=== PATIENT | female | born 1965 | race Caucasian/White ===

== ENCOUNTER 2016-04-12 11:21 | Observation (INO) | payer OTHER ==
[~2016-04-12] VITALS: Ht 172.7 cm; Wt 118.0 kg
[~2016-04-12 11:21] MED LIST: HYDROCHLOROTHIA25 MG PO; LISINOPRIL2.5 MG PO; LOVASTATIN40 MG PO; PLAVIX75 MG PO; TENORMIN25 MG PO; WELLBUTRIN100 MG
[2016-04-12 14:10] LABS: HEMATOCRIT 36.6 % (36.0-46.0); MCHC 32.5 G/DL (30.0-36.0); MCV 92.2 FL (83-99); MEAN PLAT.VOLUME 10.4 uM^3 (9.5-12.4); PLATELET COUNT 238 K/uL (156-360); RBC DIS.WIDTH-CV 12.2 % (11.8-14.6); RBC DIS.WIDTH-SD 40.1 % (39-53); RED BLOOD COUNT 3.97 M/uL (3.80-5.20); WHITE BLOOD COUNT 9.2 K/uL (4.1-10.2)
[2016-04-12 14:21] LABS: CHLORIDE 105 mEq/L (99-109); POTASSIUM 4.7 mEq/L (3.7-5.4); SODIUM 140 mEq/L (136-147)
[2016-04-12 14:23] LABS: GLUCOSE 98 mg/dL (70-99)
[2016-04-12 14:24] LABS: ANION GAP 13 MEQ/L (2-14)
[2016-04-12 14:27] LABS: GFR ESTIMATE (CALCULATED) > 59 mL/min/
[2016-04-12 14:28] LABS: UREA NITROGEN (BUN) 12 mg/dL (9-23)
[2016-04-12 14:31] LABS: TROP-I INTERPRETATION NEGATIVE; TROPONIN-I < 0.01 ng/mL (0.0-0.30)
[2016-04-12] MEDS ORDERED: MULTI VITAMIN1 EACH PO (16:24)
[2016-04-12] MEDS ORDERED: ASPIR-LOW81 MG PO (16:24)
[2016-04-12 17:29] LABS: SAMPLE HEMOLYSIS CHECK 0; SAMPLE ICTERIC CHECK 0; SAMPLE LIPEMIA CHECK 0
[2016-04-12 17:35] LABS: HDL CHOLESTEROL 57 MG/DL (Desirable>=50); LDL CHOLESTEROL 69 mg/dL (Desirable<100); NON-HDL CHOLESTEROL 79 mg/dL (Desirable<160); TOTAL CHOLESTEROL 136 mg/dL (Desirable<200); TRIGLYCERIDES 51 MG/DL (Normal: <150)
[2016-04-12 18:15] VITALS: BP 100/55
[2016-04-12 18:33] LABS: TROP-I INTERPRETATION NEGATIVE; TROPONIN-I < 0.01 ng/mL (0.0-0.30)
[2016-04-12 18:48] LABS: Estimated Average Glucose 120 mg/dL (70-123); HEMOGLOBIN A1c (GLYCOHEMOGLOB) 5.8 % HGB (Below 5.7)
[2016-04-12 21:59] VITALS: BP 93/44
[2016-04-12 22:22] LABS: TROP-I INTERPRETATION NEGATIVE; TROPONIN-I < 0.01 ng/mL (0.0-0.30)
[2016-04-13] VITALS: BP 103/52
[2016-04-13 04:20] VITALS: BP 103/55
[2016-04-13 07:31] LABS: HEMATOCRIT 34.6 % (36.0-46.0); MCHC 32.1 G/DL (30.0-36.0); MCV 93.5 FL (83-99); MEAN PLAT.VOLUME 11.3 uM^3 (9.5-12.4); PLATELET COUNT 199 K/uL (156-360); RBC DIS.WIDTH-CV 12.5 % (11.8-14.6); RBC DIS.WIDTH-SD 42.2 % (39-53)
[2016-04-13 07:32] LABS: WHITE BLOOD COUNT 5.1 K/uL (4.1-10.2)
[2016-04-13 07:53] LABS: ANION GAP 12 MEQ/L (2-14); CHLORIDE 104 MEQ/L (99-109); SAMPLE HEMOLYSIS CHECK 0; SAMPLE ICTERIC CHECK 0; SAMPLE LIPEMIA CHECK 0; SODIUM 142 MEQ/L (136-147)
[2016-04-13 07:54] LABS: POTASSIUM 3.7 MEQ/L (3.7-5.4)
[2016-04-13 07:59] LABS: GFR ESTIMATE (CALCULATED) > 59 mL/min/; GLUCOSE 90 mg/dL (70-99); UREA NITROGEN (BUN) 10 mg/dL (9-23)
[2016-04-13 08:00] LABS: TROP-I INTERPRETATION NEGATIVE; TROPONIN-I < 0.01 ng/mL (0.0-0.30)
[2016-04-13 08:36] VITALS: BP 118/56
[2016-04-13 13:07] VITALS: BP 108/58
[2016-04-13 16:11] VITALS: BP 113/66
== END 2016-04-13 16:50 | disposition home or self-care (01) ==
LOC: EME → EDBD 11:21 → EME 11:21 → EDOF 15:52 → 5WEST 15:52 → EDOF 15:52 → 5WEST 17:25
PROVIDERS: Emergency Medicine; Hospitalist
DX: G45.9 Transient cerebral ischemic attack, unspecified (principal); R07.9 Chest pain, unspecified; R94.31 Abnormal electrocardiogram [ECG] [EKG]; R20.0 Anesthesia of skin; H53.8 Other visual disturbances; I25.10 Atherosclerotic heart disease of native coronary artery without angina pectoris; Z95.5 Presence of coronary angioplasty implant and graft; I11.9 Hypertensive heart disease without heart failure; E78.5 Hyperlipidemia, unspecified; E66.01 Morbid (severe) obesity due to excess calories; Z68.39 Body mass index [BMI] 39.0-39.9, adult; Z98.84 Bariatric surgery status; Z82.49 Family history of ischemic heart disease and other diseases of the circulatory system; Z88.5 Allergy status to narcotic agent; Z88.8 Allergy status to other drugs, medicaments and biological substances; Z79.02 Long term (current) use of antithrombotics/antiplatelets; Z79.82 Long term (current) use of aspirin; Z83.3 Family history of diabetes mellitus; Z82.3 Family history of stroke; Z80.9 Family history of malignant neoplasm, unspecified
CPT/HCPCS: 70450; 70544; 70549; 70551; 71020; 80048; 80061; 83036; 84484; 85027; 93005; 93880; 99281; 99285; G0378; J1650; J7030; S0028

== ENCOUNTER 2017-02-06 15:01 | Emergency (ER) | payer OTHER ==
[~2017-02-06] VITALS: Ht 172.7 cm; Wt 122.4 kg
[~2017-02-06 15:01] MED LIST changes: +ASPIR-LOW81 MG PO; +MULTI VITAMIN1 EACH PO
[2017-02-06 16:22] LABS: ADD MIUA? YES; BILIRUBIN NEGATIVE; BLOOD LARGE; COLOR RED ((YELLOW)); GLUCOSE (STRIP) NEGATIVE; KETONES NEGATIVE; LEUKOCYTES NEGATIVE; NITRITE NEGATIVE; PROTEIN (STRIP) 300; RED BLOOD CELLS TNTC /HPF (0-5); UCUL ADDED? YES; UROBILINOGEN 0.2 MG/DL (0.2-1.0)
[2017-02-06 17:23] LABS: HEMATOCRIT 37.2 % (36.0-46.0); MCH 29.4 PG (29.0-34.0); MCHC 32.3 G/DL (30.0-36.0); MCV 91.2 FL (83-99); MEAN PLAT.VOLUME 10.3 uM^3 (9.5-12.4); PLATELET COUNT 270 K/uL (156-360); RBC DIS.WIDTH-CV 12.4 % (11.8-14.6); RBC DIS.WIDTH-SD 41.2 % (39-53); RED BLOOD COUNT 4.08 M/uL (3.80-5.20); WHITE BLOOD COUNT 13.5 K/uL (4.1-10.2)
[2017-02-06 17:30] LABS: CHLORIDE 101 mEq/L (99-109); POTASSIUM 3.7 mEq/L (3.7-5.4); SODIUM 139 mEq/L (136-147)
[2017-02-06 17:32] LABS: GLUCOSE 97 mg/dL (70-99)
[2017-02-06 17:33] LABS: ANION GAP 12 MEQ/L (2-14)
[2017-02-06 17:36] LABS: GFR ESTIMATE (CALCULATED) > 59 mL/min/
[2017-02-06 17:37] LABS: UREA NITROGEN (BUN) 10 mg/dL (9-23)
[2017-02-06 18:38] LABS: COLOR RED ((YELLOW)); GLUCOSE (STRIP) NEGATIVE; LEUKOCYTES TRACE; NITRITE NEGATIVE; PH, URINE 6 (5-8); PROTEIN (STRIP) 100; SPECIFIC GRAVITY 1.015 (1.000-1.030)
[2017-02-06 18:39] LABS: ADD MIUA? YES; BILIRUBIN NEGATIVE; BLOOD LARGE; KETONES NEGATIVE; UROBILINOGEN 0.2 MG/DL (0.2-1.0)
[2017-02-06 18:42] LABS: RED BLOOD CELLS TNTC /HPF (0-5)
[2017-02-06] MEDS ORDERED: KEFLEX500 MG PO ×2 (20:20→20:35)
[2017-02-06 20:38] VITALS: BP 115/58
== END 2017-02-06 20:39 | disposition home or self-care (01) ==
LOC: EME 15:01
PROVIDERS: Physician Assistant Medical
DX: N39.0 Urinary tract infection, site not specified (principal); R10.84 Generalized abdominal pain; I25.2 Old myocardial infarction; Z98.84 Bariatric surgery status; Z90.710 Acquired absence of both cervix and uterus; Z95.5 Presence of coronary angioplasty implant and graft; Z79.82 Long term (current) use of aspirin; Z88.5 Allergy status to narcotic agent
CPT/HCPCS: 74176; 80048; 81003; 85027; 87086; 99281; 99284